=== PATIENT | female | born 1990 | race Caucasian/White ===

== ENCOUNTER 2020-02-13 04:07 | Inpatient (IN) | payer BC ==
--- OUTSIDE RECORDS SUMMARY | 2020-02-13 04:09 | XMS REPORT | Continuity of Care Document ---
:1990 Author Organization [facility] t Address [address] [place] [address] Care Team Providers Name Role Phone Lab, Fam Pob I Attending Clinician Unavailable Problems This patient has no known problems. Allergies, Adverse Reactions, Alerts This patient has no known allergies or adverse reactions. Medications This patient has no known medications. Procedures This patient has no known procedures. Encounters Start End Encounter Admission Attending Care Care Encounter Source Date/Time Date/Time Type Type Clinicians Facility Department ID 2019-09-28 2019-09-28 Laboratory Lab, [facility] [id number] 09:55:22 10:15:22 Only Fam Pob I [place] [id number] [place] [id number] Profchristian [phone] [id number] Results This patient has no known results.
[2020-02-13 04:27] VITALS: BMI 33.2
[2020-02-13] MEDS ORDERED: METHYLERGONOVINE 0.2MG/ML AMP IM PRN (04:41)
[2020-02-13] MEDS ORDERED: PROMETHAZINE INJ 25 MG/ML AMP IM PRN (04:41)
[2020-02-13] MEDS ORDERED: BUTORPHANOL 1 MG/ML INJ IV PRN (04:41)
[2020-02-13] MEDS ORDERED: Ringers Lactate 1,000 ML IV PRN (04:41)
[2020-02-13] MEDS ORDERED: CARBOPROST TROME 250 MCG/ML IM PRN (04:41)
[2020-02-13] MEDS ORDERED: Ringers Lactate 1,000 ML IV SCH (05:00)
[2020-02-13] MEDS ORDERED: OXYTOCIN/LR 20 UNIT/1,000 ML BAG IV SCH ×2 (05:00→16:00)
[2020-02-13 05:05] LABS: Basophils % 0.5 % (0-1.3); Hematocrit 30.5 % (36.0-45.0); Lymphocytes % 26.9 % (15.3-44.8); MPV 10.9 fL (7.6-11.3); RBC Red Blood Cell Count 3.26 M/uL (3.86-4.86)
[2020-02-13 05:07] LABS: Urine Appearance CLOUDY; Urine Bilirubin NEGATIVE (NEG); Urine Blood NEGATIVE (NEG); Urine Color YELLOW; Urine Glucose NEGATIVE (NEG); Urine Protein NEGATIVE (NEG); Urine Urobilinogen 0.2 mg/dL (0.2-1.0); Urine pH 7.5 (5.0-7.0)
[2020-02-13 05:13] LABS: Urine Microscopic Reflex ORDER UMIC
[2020-02-13] MEDS ORDERED: FENTANYL CITR 100 MCG/2 ML IV ONE (05:21)
[2020-02-13] MEDS ORDERED: ROPIVACAINE HCL 0.2% 20ML AMP SQ ONE (05:22)
[2020-02-13 05:36] LABS: Urine Bacteria 20-50 /HPF (<20); Urine Culture Reflex Order REFLEXED; Urine RBC <5 /HPF (NONE SEEN); Urine Urothelial Cells <5 /HPF (NONE SEEN)
--- NOTE | 2020-02-13 07:29 | PREOPHP ---
Date of Admission: 02/13/2020 History Of Present Illness: Jenna Espitia is a 30-year-old 4, para 2, AB 1, 39 weeks gestati on. Rh positive. Immune to rubella. Negative strep. Negative COVID. For induction. The patient is baljinder regularly, mildly at this point. She is 3 cm. Baby is vertex, still -2 station. Lab or talk given. The patient will be requesting epidural. We will wait until the baby comes down in t he pelvis little bit further before we rupture membranes. She knows if membranes rupture spontaneous ly, she should tell the nurses immediately to make sure that we do not have a situation such as a pro lapsed cord. Family History: Basically negative concerning current situation. Past Surgical History: The patient had her tonsils removed, this only previous surgery. Allergies: SHE HAS NO ALLERGIES. Social History: Was smoking prior to the and quit on day 5 of the . Physical Examination: HEENT: Clear. Pupils equal, round, reactive to light and accommodation. Conjunctivae well perfused . No oral, lingual, or buccal lesions. Chest and Lungs: Clear. Heart: Without murmurs, thrills, heaves, or rubs on previous visits. Abdomen: Term size. Breasts: Not examined. : Cervix is 3 cm, 50% effaced, vertex, significantly high at this point. Extremities: Clear without edema, cyanosis, or clubbing. Rupture membranes as when the baby descends into the pelvis of course and checked patient immediately if spontaneous rupture occurs. GILBERTO/JACOB Voice ID: [id number]
[2020-02-13] MEDS ORDERED: 0.2% ROPIVACAINE (200 MG/100 ML) BAG EP ONE (10:00)
--- NOTE | 2020-02-13 11:28 | PN ---
Patient is now 4.5 to 5 cm, 70% effaced, vertex, -1 station, rupture of membranes, clear fluid. FHTs normal, reactive. She is baljinder regularly. Still does not really uncomfortable. Probably wit h in next half hour to an hour, she will probably want her epidural. We will start hydration process at this time. Once the patient reaches 6 cm, I anticipate much more rapid progress. GILBERTO/JACOB Voice ID: [id number] Report ID: [id number]
[2020-02-13] MEDS ORDERED: Ringers Lactate 1,000 ML IV ONE (11:30)
[2020-02-13] MEDS ORDERED: LIDOCAINE 2% INJ, 20 mL 0 ML ONE (11:30)
[2020-02-13] MEDS ORDERED: Oxycodone HCl/Acetaminophen 1 TAB TAB PO PRN (15:02)
[2020-02-13] MEDS ORDERED: DIPHENHYDRAMINE 25 MG TAB/CAP PO PRN (15:02)
[2020-02-13] MEDS ORDERED: BISACODYL 10 MG RECTAL SUPP PR PRN (15:02)
[2020-02-13] MEDS ORDERED: DOCUSATE NA/SENNA CONC 1 TAB PO PRN (15:02)
[2020-02-13] MEDS ORDERED: IBUPROFEN 600 MG TAB PO PRN (15:31)
[2020-02-13] MEDS: METHYLERGONOVINE 0.2 MG TAB PO SCH ×2 (16:30→20:30)
[2020-02-13] MEDS: ACETAMINOPHEN 500 MG TAB PO PRN ×2 (16:30→20:30)
[2020-02-13] MEDS ORDERED: DOCUSATE NA 100 MG CAP PO ONE (16:50)
[2020-02-13] MEDS ORDERED: DOCUSATE NA 100 MG CAP PO SCH (21:00)
--- NOTE | 2020-02-13 23:16 | OP ---
Surgeon: Frank Hyman MD Indications And Procedure: A 30-year-old female 4, para 2, 39 weeks, approximately 2.5 to 3 cm this morning on admission, rupture of membranes, clear fluid, Rh positive, immune to rubella, nega tive strep, negative COVID. At approximately 4.5 to 5 cm, the patient requested and received epidura l anesthesia. This did not give adequate relief and therefore Dr. Flowers came back at approximately 7- 8 cm and attempted spinal block with fentanyl. Second stage of about 20 minutes. Spontaneous vagina l delivery of a 9-pound 10-ounce male infant. Nuchal cord x1 plus a true knot in the cord. Apgars 6 and 9. Blow-by oxygen and stimulation, baby responded quickly. Mild shoulder dystocia, flexion of the legs, and suprapubic pressure effected delivery easily. No lacerations worthy of suturing. Schu ltze delivery of the placenta which inspected, noted to be intact and normal. Less than 300 cc blood loss but given prophylactically Methergine as the baby was quite large and we expect the uterus to p robably relax here soon. We will keep IV going for at least 5-6 hours post to make sure no si gnificant lochia more than normal occurs. Final Diagnoses: Term intrauterine . Vaginal delivery. Epidural followed by spinal block anesthesia with fentanyl. macrosomia. Mild shoulder dystocia. Nuchal cord. True knot in the cord. MOHAMUDC/MODL Voice ID: [id number] Report ID: [id number]
[2020-02-14] MEDS: METHYLERGONOVINE 0.2 MG TAB PO SCH ×2 (00:37→04:30)
[2020-02-14 00:39] VITALS: TEMP 98
[2020-02-14] MEDS: Oxycodone HCl/Acetaminophen 1 TAB TAB PO PRN ×4 (03:39→17:34)
[2020-02-14] MEDS: ACETAMINOPHEN 500 MG TAB PO PRN (03:40)
[2020-02-14] MEDS ORDERED: Ringers Lactate 2,000 ML IV ONE (03:44)
[2020-02-14 04:49] VITALS: BP 135/74
--- NOTE | 2020-02-14 07:41 | DS ---
Hospital Course: This is a 30-year-old 3, para 2, at 39 weeks 1 day, delivered of a 9 pound 10 ounce male , Apgars 6 and 9. Nuchal cord x1 and a true knot in the cord. No episiotomy. N o lacerations. Epidural anesthesia followed by spinal block with fentanyl. 300 cc blood loss. Rh p ositive, immune to rubella, negative strep, negative COVID. , afebrile, ambulating and voi ding. Lochia is normal. Will be dismissed later today to report back to my office in 6 weeks for fo [place]. To report any temperature elevation of 100 degrees or greater, severe pain, heavy bleeding, or any other type of abnormality. Dismissed with tramadol at her request. She knows this goes throu gh the breast milk. No post epidural problems. She has had her Tdap and flu immunizations. Final Diagnoses: Term intrauterine . Vaginal delivery. macrosomia. Nuchal and true knot in the cord. Epidural followed by spinal block anesthesia. Mild shoulder dystocia. NBC/MODL Voice ID: [id number] Report ID: [id number]
[2020-02-14 17:59] LABS: RPR (Rapid Plasma Reagin) NON-REACT (NON-REACT)
[2020-02-17 20:50] LABS: HBsAG Nonreactive (Nonreactive)
== END 2020-02-14 17:35 | disposition home or self-care (01) | DRG 807 ==
LOC: 2ND-WC 04:07
PROVIDERS: ADMIT Specialist; ATTEND Specialist
PROC: 10E0XZZ Delivery of Products of Conception, External Approach (ICD-10-PCS; principal; 2020-02-13)
PROC: 10907ZC Drainage of Amniotic Fluid, Therapeutic from Products of Conception, Via Natural or Artificial Opening (ICD-10-PCS; 2020-02-13)
DX: O66.0 Obstructed labor due to shoulder dystocia (principal); Z37.0 Single live birth; O69.2XX0 Labor and delivery complicated by other cord entanglement, with compression, not applicable or unspecified; Z3A.39 39 weeks gestation of pregnancy; O36.60X0 Maternal care for excessive fetal growth, unspecified trimester, not applicable or unspecified; O69.81X0 Labor and delivery complicated by cord around neck, without compression, not applicable or unspecified; Z20.828 Contact with and (suspected) exposure to other viral communicable diseases
CPT/HCPCS: 36415; 81003; 81015; 85025; 86592; 86850; 86900; 86901; 87086; 87088; 87340; J2210; J2590; J2795; J3010; J7120; U0003